=== PATIENT | male | born 1965 | race Asian ===

== ENCOUNTER 2024-11-18 18:33 | Inpatient (IN) | payer OTHER, SELFPAY ==
[2024-11-18] VITALS (10 sets, daily range): BP systolic 114–170; BP diastolic 62–99; BMI 36.8; BMI 36.7
--- NOTE | 2024-11-18 16:23 | ED.GENMED ---
History of Present Illness
General
Chief Complaint: Chest Pain
Source: patient
Exam Limitations: none
Time Seen by Provider: 11/18/24 16:09
History of Present Illness
History of Present Illness:
59-year-old male complaining of intermittent chest pain. Has been going on for a week. Started while [place] was in [place] country[place] Flu a few days prior to that. Some radiation at times to the left shoulder. No diaphoresis or nausea. Feels like his
previous cardiac issues per the patient. History of multiple stents. No leg pain or leg swelling. No fever.
Past History
Past History
ED Past Medical History: CAD, HTN, Hypercholesterolemia and IDDM
ED Past Surgical History: Cardiac
Social History
Tobacco: Former smoker (States he quit in 2015)
Alcohol: Occasional
Drug: None
Living: with family
Employment: Not employed
Family History
Family History: Early CAD
Review of Systems
Review of Systems
All Other Systems: Not applicable
Constitutional: Denies fever
Respiratory: Denies cough or trouble breathing
ABD/GI: Reports no symptoms
Phy Exam
Physical Exam
Physical Exam:
GENERAL: Alert and oriented in no apparent distress
EYE: Orbits normal.
NECK: Supple
CARDIAC: Regular rate and rhythm without any obvious murmurs.
LUNGS: Clear breath sounds,normal
ABDOMEN: Soft, without focal tenderness or distention. Elevated BMI
NEUROLOGICAL: Alert and oriented , grossly non-focal
SKIN: Warm and dry, no rash or lesion, no discoloration, skin intact.
MUSCULOSKELETAL: No edema,no deformity.Good color
PSYCH: Normal and appropriate interaction..
Scores
Heart Score for Chest Pain Patients
STEMI patient?: No
History: Moderately Suspicious
ECG: Nonspecific Repolarization
Age: >/= 65 years
Risk Factors: >/= 3 Risk Factors or History of CAD
Troponin: >1 - <3 x Normal Limit
Heart Score for Chest Pain Patients: 7
Heart Score Risk: 72.7 % MACE over next 6 weeks
Course
Orders/Labs/Results
Orders:
Orders
11/18/24 16:11
IV Insert/Care/Rem.- Treatment PRN
Pulse Ox/cont/shift [RESP] Stat
Quantity: 1
11/18/24 16:12
Electrocardiogram (*1) Stat
Reason for Study: Other
Other Reason for Exam: chest pain
CT Chest PE Study Urgent
Comment:
Reason For Exam: Chest pain/history of PE/recent flight
Cardiac Monitoring- Treatment ONCE
EKG- Treatment ONCE
11/18/24 16:14
Complete Blood Count/With Diff Urgent
Comprehensive Metabolic Panel Urgent
Lipase Urgent
Troponin I Urgent
11/18/24 16:29
Electrocardiogram (*1) Urgent
Reason for Study: Chest Pain
11/18/24 16:30
EKG- Treatment ONCE
11/18/24 16:36
Heparin 4,000 units IV NOW STA
11/18/24 16:[address] Non Medication Order As Directed
Physician Order: PTT 6 hours after initial start of Heparin infusion
Above order entered?: Yes
11/18/24 16:38
Nitroglycerin Sublingual [Nitrostat (Sublingual)] 0.4 mg .ROUTE .STK-MED ONE
11/18/24 16:45
Heparin 05840 Units/250 ml 25,000 units in 250 ml IV PER PROTOCOL
Weight to be used for heparin protocol in kilograms (kg):: 103.5
Protocol:: Cardiac Tx/Acute Coronary
PTT Goal Range to be used:: PTT 73 to 111 seconds
Order type:: Initial
INITIAL Infusion Dose (UNITS/KG/hr) & then follow protocol:: 12 units/kg/hr
Infusion Dose in UNITS/hr & then follow protocol (UNITS/hr):: 1,000
INFUSION RATE in mL/hr & then follow protocol (mL/hr):: 10
PTT less than or equal to 64 seconds:: Increase rate by 200 units/hr (+ 2 mL/hr)
PTT 64.1 to 72.9 seconds:: Increase rate by 100 units/hr (+ 1 mL/hr)
PTT 73 to 111 seconds:: Target Range. No change in rate.
PTT 111.1 to 130.9 seconds:: Decrease rate by 100 units/hr (- 1 mL/hr)
PTT 131 to 199.9 seconds:: HOLD for 1 hr. Then decrease rate by 200 units/hr (- 2 mL/hr)
PTT greater than or equal to 200 seconds:: HOLD for 2 hrs & Notify Provider. Then decrease by 200 units/hr (-
2 mL/hr)
Lab follow-up:: Each change, PTT q6h until 2 consecutive are therapeutic. Then PTT
daily.
11/18/24 17:13
PTT Urgent
Comment: Obtain baseline before beginning heparin infusion if not already collected
11/18/24 17:34
Heparin 5,000 units .ROUTE .STK-MED ONE
Nitroglycerin 100 mg/250 ml [Nitroglycerin Premix] 100 mg in 250 ml IV NOW
Initial dose in mcg/min, then titrate:: 5
Titrate to keep:: Chest Pain Free
Titrate by mcg/min:: 5 mcg/min, may increase by 10 mcg/min if dose > 20 mcg/min
Frequency of titrations (minutes):: every 3-5 minutes
Maximum dose in mcg/min:: 200
Begin to taper infusion when:: Remained at goal for 2hrs
Taper by mcg/min:: 5 mcg/min
Frequency of taper (minutes) if patient maintains goal:: 30
Taper to off?: Yes
If infusion off & no longer maintaining goal:: Contact Provider
11/18/24 18:00
Admit/Transfer Patient As Directed
Co-Sign Provider:
Level of Care: Inpatient admission
Assign to:: IVU
Physician / Group: trang
Diagnosis: NSTEMI
Reason for Hospitalization: NSTEMI
Expected length of stay greater than two midnights?: Yes
ELOS- Estimated Length of Stay in days: 3
I certify the patient meets the requirements for IP care: Yes
PRN Pain Medication Management As Directed
May give lesser potent ordered pain med per pt: Yes
preference::
Protocol:: Medication orders for pain may be administered in a
manner that supports deferring to patient preference
when the pt is:
- Requesting an ordered lesser potent pain medication.
Least to most potent pain medications are defined
as: acetaminophen < NSAID < tramadol < opioids
(morphine, oxycodone, hydromorphone).
- Requesting a lesser dose of the same medication IF
ORDERED.
- Requesting a less intrusive route of administration
if both routes are prescribed by the provider (PO <
IV).
11/18/24 18:04
Code Status As Directed
Resuscitation Status: Full Code
11/18/24 18:07
Aspirin 325 mg PO NOW STA
11/18/24 22:00
Troponin I Q6H
11/18/24 23:29
PTT Routine
11/19/24 04:00
Troponin I Q6H
11/19/24 06:00
Echo 2D MMode Color/Doppler IN AM
Reason for Study: chest discomfort
NPO
Allow oral meds: Yes
Allow clear liquids: No
Abnormal Lab Results
11/18/24
16:14
WBC 11.4 H 10^3/uL
(4.8-10.8)
Hgb 12.1 L g/dL
(13.0-18.0)
Hct 37.3 L %
(39.0-52.0)
MCV 78.5 L fL
(80.0-94.0)
MCH 25.5 L pg
(27.0-31.0)
MCHC 32.4 L g/dL
(33.0-37.0)
Absolute Lymphs (auto) 4.5 H 10^3/uL
(1.2-3.4)
BUN 26 H mg/dl
(9-20)
Glucose 179 H mg/dl
(70-99)
Troponin I 0.057 H* ng/ml
11/18/24 16:14
11/18/24 16:14
Vital Signs
Initial and Last Documented VS:
Initial Vital Signs
Temp Pulse Resp BP Pulse Ox
98.3 F 69 17 152/95 99
11/18/24 16:06 11/18/24 16:06 11/18/24 16:06 11/18/24 16:06 11/18/24 16:06
Last Documented Vital Signs
Temp Pulse Resp BP Pulse Ox
98.3 F 66 27 131/81 98
11/18/24 16:06 11/18/24 21:00 11/18/24 21:00 11/18/24 20:00 11/18/24 20:30
MDM/Problems Addressed
Differential Diagnosis Includes:
Somewhat difficult historian. Describing intermittent chest pain. At times points to a local area at other times describes it is towards the shoulder and arm. Significant cardiac history. Relatively low suspicion for PE but with a long flight
and history of PE feels this needs to be ruled out. Feel D-dimer is not sensitive enough. If this is negative patient warrants further inpatient evaluation
*Radiology
Radiology exam reviewed: radiology read reviewed (No open no pulmonary emboli. Coronary calcification and stents. Mild aneurysmal dilatation of the ascending aorta)
*Pulse Oximetry
Patient hypoxic: no
*EKG
Interpreted by ED Provider?: Yes
Interpretation: abnormal
Comparison EKG: no changes
Heart Rate: 69
Rate: normal
Rhythm: sinus
Al[place]: normal axis
Interval: normal interval
QRS Pattern: normal QRS
Ischemia: T-wave inversion
*Critical Care Note
Total Time (30-74mins, 75-104mins- exclusive of procedures): 45
Data Reviewed
Review of Other/Old Records Reveals: Labs, Records, Testing and Discharge Summary
Update Note
Update Note:
1635... Patient with some increasing symptoms although points to a fairly localized spot. Repeat EKG unchanged. I will heparinize the patient. Either way whether this is cardiac PE warrants heparinization.
ED Attending Note
-
Portions of this chart may have been created with voice recognition software.� Occasional wrong word or��sound alike� substitutions may have occurred due to the inherent limitations of voice recognition software.
Discharge Plan
Departure
Patient Disposition: Admit
Date of Disposition: 11/18/24
Time of Disposition: 17:35
Presentation/result/management discussed w/ accepting MD/DO: Hospitalist
Discharge Problem:
Recurring chest pain, Possible unstable angina, Mild aneurysmal dilatation ascending aor
Interventions
Interventions:
*Risk Screen - Suicide Last Done: 11/18/24 16:21
*General Assessment Last Done: 11/18/24 16:21
*Neglect/Abuse Screening Last Done: 11/18/24 16:21
*ED- Fall Risk Assessment Last Done: 11/18/24 16:21
*ED COVID-19 Vaccine History Last Done: 11/18/24 16:21
*Nursing Disposition Last Done: 11/18/24 21:00
ED- Cardiac Assessment Last Done: 11/18/24 16:21
Discharge Date and Time
Discharge Date/Time: 11/18/24 21:00
[2024-11-18 16:26] LABS: % Basophils 0.4 % (0-2); % Eosinophils 2.5 % (0-6); % Immature Granulocytes 0.2 % (0-0.5); % Lymphocytes 39.9 % (20.5-51.1); % Monocytes 5.3 % (1.7-9.3); % Neutrophils 51.7 % (42.2-75.2); Absolute Eosinophils 0.3 10^3/uL (0-0.7); Absolute Lymphocytes 4.5 10^3/uL (1.2-3.4); Absolute Monocytes 0.6 10^3/uL (0.1-0.6); Absolute Neutrophils 5.9 10^3/uL (1.4-6.5); Hematocrit 37.3 % (39.0-52.0); Hemoglobin 12.1 g/dL (13.0-18.0); Mean Corp Hgb Conc. 32.4 g/dL (33.0-37.0); Mean Corpuscular Hgb 25.5 pg (27.0-31.0); Mean Corpuscular Volume 78.5 fL (80.0-94.0); Mean Platelet Volume 10.1 fL (7.4-10.4); Nucleated Red Blood Cells % 0 % (-); Platelet Count 283 10^3/uL (130-400); Red Blood Cell Count 4.75 10^6/uL (4.70-6.10); Red Cell Dist. Width 14.1 % (11.5-14.5); White Blood Cell Count 11.4 10^3/uL (4.8-10.8)
[2024-11-18 16:41] LABS: ALT (SGPT) 18 U/L (0-50); AST (SGOT) 27 U/L (17-59); Albumin 4.2 g/dl (3.5-5.0); Alkaline Phosphatase 99 U/L (38-126); Blood Urea Nitrogen 26 mg/dl (9-20); Calcium 9.5 mg/dl (8.4-10.2); Carbon Dioxide 24 mmol/L (22-30); Chloride 106 mmol/L (98-107); Estimated Creatinine Clearance 84 ml/min; Glucose 179 mg/dl (70-99); Lipase 104 U/L (23-300); Potassium 3.6 mmol/L (3.5-5.1); Sodium 138 mmol/L (135-145); Total Bilirubin 0.2 mg/dl (0.2-1.3); Total Protein 7.2 g/dl (6.3-8.2); eGFR > 60.00
[2024-11-18 16:54] LABS: Troponin I 0.057 ng/ml
--- NOTE | 2024-11-18 17:28 | CON.CAR ---
Addendum entered and electronically signed by Raya Reno MD 11/18/24 18:57:
I saw and examined the patient.
The EQUIPMENT OPERATION INSTRUCTOR's note was reviewed and I agree with the note.
Comment: 59 y/o male with hx PE's (previously on Eliquis), CAD with multiple stents (cath 2019 as below), DM on insulin, HTN, HLD, asthma on inhaler therapy is here for evaluation intermittent episodes of chest discomfort reminiscent of prior
angina. Interestingly he does not get relief with what appears to be a spray nitroglycerin drip. At times it can be positional. Trope is already 0.057. He is now comfortable. On exam he has a regular rate and rhythm normal S1-S2 no murmur exams
were appreciated lungs were clear to auscultation bilaterally abdomen soft nontender nondistended without pedal splenomegaly extremities are warm and well-perfused. EKG is normal sinus rhythm nonspecific ST abnormality no change from prior. CT PE
scan reviewed by myself images do not show consistent mincing evidence of large volume of PE, await full report. Overall, chest pain is present that seems to be progressive in the setting of prior extensive vasculopathy with PCI. In the absence of
a PE, would recommend cardiac catheterization and further evaluation of symptoms. Will trend troponin. Continue nitroglycerin drip. N.p.o. after midnight. He was added to the cath schedule. Further OMT post procedure.
Original Note:
Medical History
-
Chief Complaint: chest discomfort
History of Present Illness:
59 y/o male with hx PE's (previously on Eliquis), CAD with multiple stents (cath 2019 as below), DM on insulin, HTN, HLD, asthma on inhaler therapy is here for evaluation of chest discomfort. It is left-sided and goes down arm. Interestingly, it is
a bit positional, though he reports it feels like previous angina. Not noted with exertion. Can last up to 1/2 hour. EKG is stable troponin is 0.057. He has no CP at the time of exertion. He just flew back after 18 months in [place] yesterday. CT
PE pending. 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 Denies fever or chills.
Past Medical History
Past Medical History: Asthma, CAD, HTN, Hypercholesterolemia, NIDDM and Other (as above)
Social History
Tobacco: Former Smoker
Family History
Family History: Early CAD
Allergies / Home Medications
Allergy/AdvReac Type Severity Reaction Status Date / Time
egg Allergy Anaphylaxis Verified 11/18/24 16:21
beef Allergy Anaphylaxis Uncoded 11/18/24 16:21
shrimp Allergy Anaphylaxis Uncoded 11/18/24 16:21
�Medication �Instructions �Recorded �Confirmed �Type
acetaminophen-caffeine 500 mg-65 1 tab PO [id number] PRN mild pain 11/18/24 11/18/24 History
mg tablet
albuterol sulfate 90 mcg/actuation 2 puff inhalation R Q6HPRN PRN sob 11/18/24 11/18/24 History
aerosol inhaler
amlodipine 10 mg tablet (Norvasc) 10 mg PO DAILY 11/18/24 11/18/24 History
aspirin 81 mg tablet,delayed 75 mg PO QPM 11/18/24 11/18/24 History
release
cetirizine 10 mg tablet (Zyrtec) 10 mg PO HS 11/18/24 11/18/24 History
clopidogrel 75 mg tablet (Plavix) 75 mg PO DAILY 11/18/24 11/18/24 History
esomeprazole magnesium 20 mg 20 mg PO BID 11/18/24 11/18/24 History
capsule,delayed release (Nexium)
glimepiride 1 mg tablet 1 mg PO QPM 11/18/24 11/18/24 History
metformin 1,000 mg tablet,extended 1,000 mg PO BID 11/18/24 11/18/24 History
release 24hr (osmotic)
metoprolol tartrate 25 mg tablet 25 mg PO BID 11/18/24 11/18/24 History
montelukast 10 mg tablet 10 mg PO DAILYPRN PRN allergies 11/18/24 11/18/24 History
(Singulair)
paroxetine HCl 20 mg tablet (Paxil) 20 mg PO HS 11/18/24 11/18/24 History
rosuvastatin 10 mg tablet (Crestor) 10 mg PO DAILY 11/18/24 11/18/24 History
Review of Systems
-
History Source: Patient
All other systems: Negative unless noted
Cardiac: Chest Pain
Physical Exam
Vital Signs
Temp Pulse Resp BP Pulse Ox
98.3 F 66 15 143/78 98
11/18/24 16:06 11/18/24 17:15 11/18/24 17:15 11/18/24 17:00 11/18/24 17:15
Lab Results
11/18/24 16:14
11/18/24 16:14
Troponin I 0.057 ng/ml H* 11/18/24 16:14
Physical Exam
General: Well Developed, Well Nourished and No Apparent Distress
HEENT: Normocephalic
Respiratory: Clear and Non Labored Respirations
Cardiac: Regular Rhythm
Musculoskeletal: No Edema
Skin: Warm and Dry
Neuro: AO x 3
Psych: Calm
Impression / Plan
-
Chest discomfort:
-none presently, EKG looks stable from previous
-he reports it feels similar to his previous angina. However, he is also describing it as positional, which is atypical. Troponin is abnormal, etiology not yet clear. Trend trops. Obtain echo. PE study pending.
-echo in AM, would keep NPO for AM while we sort this out to see if he needs ischemic eval
-he is on heparin drip and nitro drip, both of which require intensive monitoring
CAD:
-continue plavix, statin, BB
-Cath 2019: LAD: Widely patent ostial/proximal LAD stents with focal 30% mid LAD stenosis. There is 50% apical LAD stenosis similar appearance to the prior study from September 2018. Circumflex: Widely patent ostial circumflex stent with trivial
in-stent stenosis. There is 20-30% circumflex stenosis proximal to the takeoff of the large OM 1. OM1 bifurcates distally and there is 40% stenosis proximal to the bifurcation site and 60% ostial stenosis in the much smaller daughter branch. The
circumflex continues on and terminates with a moderate-sized OM 3 and a large OM 4. The mid circumflex stent is widely patent. RCA: Large dominant vessel with widely patent proximal RCA stent. There is focal 30-40% mid RCA stenosis. The large PDA is
disease free. The AV groove has a widely patent stent with no restenosis (HIWOT 09/2018). The large posterolateral system has trivial luminal disease
DM, on insulin:
-management per primary
-check A1C
Dyslipidemia:
-continue statin, check lipids
Data Reviewed
-
EKG: Tracing Personally Visualized and interpreted (SR with 1st degree AVB, ST/T abnormality lateral- similar to 2020 EKG)
CT Scan: Other (CT pending)
Medical Tests (Nuc Med, Echo etc): Report Reviewed by me (Echo 05/29/21: Normal biventricular size and systolic function without regional wall motion abnormality. Moderate concentric left ventricular hypertrophy. Dilated ascending aorta. ) and
Other (cath as noted)
Labs: Labs Reviewed by me
[2024-11-18] MEDS: HEPARIN 4000 UNITS IV (17:29)
[2024-11-18 17:31] LABS: APTT 27.5 Sec (23.4-35.0)
[2024-11-18] MEDS: HEPARIN 25000 UNITS/250 ML IV ×2 (17:33→17:37)
--- NOTE | 2024-11-18 17:36 | HPS.HSE ---
Family Physician
-
Family Physician: Hossein Wallace
Chief Complaint
-
left sided chest pain radiating to left shoulder and neck
History of Present Illness
59-year-old male with past medical history for CAD s/p cardiac stents, asthma, hypertension, type 2 diabetes, hyperlipidemia presented to us with 2 weeks of of intermittent chest pain radiating to his left arm, shoulder and left neck. Patient was
at [facility] at that time. He was evaluated by physician, who prescribed him some pill and spray with no relief in his symptoms. Patient came to [facility] last night. He was having excruciating pain during the flight. Today he felt the pain
again. Patient stated some short of breath. He denied any headache, dizzy or syncope. Patient denied any fever, chills, cough. Patient denied abdominal pain, nausea, vomiting or diarrhea. Patient denied dysuria hematuria.
Upon arrival noted to have elevated Trop. EKG with impression of sinus rhythm with first-degree AV block. ST and T wave abnormality. Patient was initiated on nitro drip and heparin drip. He was evaluated by cardiology. Admitting for further
management
Medical History
Past Medical History
Past Medical History: Reports Other
Additional Past Medical History:
CAD
HTN
HLD
IDDM
PE
Past Surgical History: Reports Other
Additional Past Surgical History:
cardiac stents
Social History
Tobacco: Former Smoker
Alcohol: Former
Drug: None
Personal:
Living: Alone
Employment: Not Employed
Family History
Family History: Not pertinent
Allergies / Home Medications
Allergies reflects when Allergies were last updated in [employer]
Home Medications with original date entered in [employer]
Allergy/Medication List:
Allergies
Allergy/AdvReac Type Severity Reaction Status Date / Time
egg Allergy Anaphylaxis Verified 11/18/24 16:21
beef Allergy Anaphylaxis Uncoded 05/21/25 16:21
shrimp Allergy Anaphylaxis Uncoded 11/18/24 16:21
Home Medications
acetaminophen-caffeine 500 mg-65 mg tablet 1 tab PO [id number] PRN mild pain 11/18/24
albuterol sulfate 90 mcg/actuation aerosol inhaler 2 puff inhalation R Q6HPRN PRN sob 11/18/24
amlodipine 10 mg tablet (Norvasc) 10 mg PO DAILY 11/18/24
aspirin 81 mg tablet,delayed release 75 mg PO QPM 11/18/24
cetirizine 10 mg tablet (Zyrtec) 10 mg PO HS 11/18/24
clopidogrel 75 mg tablet (Plavix) 75 mg PO DAILY 11/18/24
esomeprazole magnesium 20 mg capsule,delayed release (Nexium) 20 mg PO BID 11/18/24
glimepiride 1 mg tablet 1 mg PO QPM 11/18/24
metformin 1,000 mg tablet,extended release 24hr (osmotic) 1,000 mg PO BID 11/18/24
metoprolol tartrate 25 mg tablet 25 mg PO BID 11/18/24
montelukast 10 mg tablet (Singulair) 10 mg PO DAILYPRN PRN allergies 11/18/24
paroxetine HCl 20 mg tablet (Paxil) 20 mg PO HS 11/18/24
rosuvastatin 10 mg tablet (Crestor) 10 mg PO DAILY 11/18/24
Review of Systems
-
Constitutional: Reports No Symptoms
EENT: Reports No Symptoms
Respiratory: Reports Trouble Breathing
Cardiac: Reports Chest Pain
Abdomen/GI: Reports No Symptoms
: Reports No Symptoms
Musculoskeletal: Reports No Symptoms
Skin: Reports No Symptoms
Neurological: Reports No Symptoms
Endocrine: Reports No Symptoms
Hematologic/Lymphatic: Reports No Symptoms
Psych: Reports No Symptoms
Physical Exam
Vital Signs
Vital Signs
Temp Pulse Resp BP Pulse Ox
98.3 F 66 15 143/78 98
11/18/24 16:06 11/18/24 17:15 11/18/24 17:15 11/18/24 17:00 11/18/24 17:15
Physical Exam
General: Well Developed, Well Nourished and No Apparent Distress
HEENT: NormoCephalic, Moist mucous membranes and Atraumatic
Respiratory: Clear
Cardiac: S1/S2 and Regular Rhythm; No Murmur or Rub
GI: Soft, Non Tender, Non Distended and Normal Bowel Sounds; No Organomegaly
Rectal: Deferred by Provider
Musculoskeletal: No Clubbing, No Cyanosis and No Edema
Skin: No Rash
Neuro: AO x 3 and Nonfocal/grossly intact
Psych: Calm
Laboratory Results
-
11/18/24 16:14
11/18/24 16:14
Laboratory Results
Total Bilirubin 0.2 mg/dl (0.2-1.3) 11/18/24 16:14
AST 27 U/L (17-59) 11/18/24 16:14
ALT 18 U/L (0-50) 11/18/24 16:14
Alkaline Phosphatase 99 U/L (38-126) 11/18/24 16:14
Troponin I 0.057 ng/ml H* 11/18/24 16:14
Lipase 104 U/L (23-300) 11/18/24 16:14
Data Reviewed
-
Lab Data: Labs Reviewed by me
Impression/Plan
-
#unstable angina/NSTEMI
# History of CAD with 6 cardiac stent
-trop 0.057
-trend trop
-chest CT pending
-EKG with sinus rhythm with 1st degree A V block, ST and T wave abnormality, consider lateral ischemia
-N.p.o. after midnight for potential cardiac cath in the morning
-Heparin drip
-obtain ECHO
-cardiology consulted
-nitro drip continued
#leukocytosis likely stress reaction
-wbc 11.4, patient is afebrile
-ctm
#anemia of chornic disease
-hgb stable at 12.1
-not active bleeding
-ctm
#primary Hypertension
- Stable.
- Norvasc continue with hold parameters
#Diabetes Mellitus Type II
- Continue sliding scale
- Hold oral agents for now.
- Update A1C.
#History of asthma
-Not in acute exacerbation
-Singular and albuterol continued
#hxt of PE in 2020
#Obesity
- Affects all aspects of care and specifically increases risk of sleep disordered breathing as noted above.
- Encourage healthy diet and active lifestyle with goal of weight loss.
#DVT Prophylaxis: heparin drip
Code Status: Full
[2024-11-18] MEDS: NITROGLYCERIN PREMIX 250 IV (17:41)
[2024-11-18] MEDS: ASPIRIN 325 MG PO (18:20)
--- NOTE | 2024-11-18 19:02 | W.PN.UPDATE ---
Addendum entered and electronically signed by Lazaro Marquez MD 11/18/24 19:42:
Correction- PE was in 2020.
Original Note:
Update Note
Progress Note Update
This is an addendum to H&P written by Monica Hernandez on 11/18/2024.� Patient seen examined independently with PRACTICING UROLOGIST.
59-year-old male past medical history of bilateral pulmonary embolism after flight in 2016, anemia, iron deficiency, CAD status post multiple stents 2002, 2006, hypertension, type 2 diabetes, obesity, presenting with chest pain for 2 weeks sometimes
with rest and worse with exertion.� Returned from [facility] yesterday.
EKG shows sinus rhythm first-degree AV block.� T wave inversions in aVL and lead I, V5, V6.
Labs show leukocytosis.� Troponin of 0.057.
Patient with likely NSTEMI. Trend troponins.� Continue aspirin and Plavix.� Heparin drip started.� Nitroglycerin drip started.� Cardiology consulted.� N.p.o. postmidnight for potential catheterization tomorrow.
--- NOTE | 2024-11-18 20:50 | PTCARENOTE ---
Received pt from ED @ 2039. AAOx3, very drowsy. VSS-- SR with AV Block on monitor. Heparin gtt running through right hand @ 1000. Nitro running through left AC @ 5 mcg/kg/hr. Denies CP @ this time. Discussed plan of care for evening, including EKGs,
blood draws, and being NPO @ midnight. Pt verbalizes understanding. Call jeffery within reach.
[2024-11-18] MEDS: LOPRESSOR 25 MG PO (22:17)
[2024-11-18] MEDS: PROTONIX 40 MG PO (22:17)
[2024-11-18] MEDS: ZYRTEC 10 MG PO (22:18)
[2024-11-18] MEDS: PAXIL 20 MG PO (22:18)
[2024-11-18 22:31] LABS: Troponin I 0.054 ng/ml
[2024-11-18 22:35] LABS: Glucose - Point of Care 231 mg/dl (70-99)
[2024-11-19] VITALS (21 sets, daily range): BP systolic 101–159; BP diastolic 52–98; BMI 36.4
[2024-11-19 01:44] LABS: Troponin I 0.051 ng/ml
--- NOTE | 2024-11-19 06:16 | PTCARENOTE ---
Pt c/o chest pain throughout the night. EKG performed and nitro increased-- see worklist. Pt denies CP @ this time.
--- NOTE | 2024-11-19 08:00 | PTCARENOTE ---
report received from previous RN at change of shift. Pt sleeping, arouses easily to voice. AAOx3. standby assist OOB. SR on telemetry heart rate in 60s. pulses palpable. no edema. pt on room air, sat 94%. lung sounds clear. active bowel sounds.
voiding in urinal. Nitro and heparin infusing per orders. see worklist for full nursing assessment and interventions.
[2024-11-19 08:25] LABS: Hematocrit 38.5 % (39.0-52.0); Hemoglobin 12.2 g/dL (13.0-18.0); Mean Corp Hgb Conc. 31.7 g/dL (33.0-37.0); Mean Corpuscular Hgb 25.2 pg (27.0-31.0); Mean Corpuscular Volume 79.5 fL (80.0-94.0); Platelet Count 273 10^3/uL (130-400); Red Blood Cell Count 4.84 10^6/uL (4.70-6.10); Red Cell Dist. Width 14.1 % (11.5-14.5); White Blood Cell Count 11.4 10^3/uL (4.8-10.8)
[2024-11-19 08:34] LABS: APTT 38.9 Sec (23.4-35.0)
[2024-11-19 08:43] LABS: Glucose - Point of Care 161 mg/dl (70-99)
[2024-11-19] MEDS: NOVOLOG FLEXPEN-LOW RESISTANCE SC (08:43)
[2024-11-19] MEDS: PROTONIX 40 MG PO ×2 (08:44→19:44)
[2024-11-19] MEDS: LOPRESSOR 25 MG PO (08:44)
[2024-11-19] MEDS: LOW STRENGTH ASPIRIN 81 MG PO (08:44)
[2024-11-19] MEDS: CRESTOR 10 MG PO (08:44)
[2024-11-19] MEDS: PLAVIX 75 MG PO (08:45)
[2024-11-19] MEDS: NORVASC 10 MG PO (08:45)
[2024-11-19 09:17] LABS: Glycohemoglobin (HgbA1c) 9.1 % (4.0-5.6)
[2024-11-19] MEDS: TYLENOL 650 MG PO ×2 (09:26→15:46)
[2024-11-19 10:06] LABS: Troponin I 0.043 ng/ml
--- NOTE | 2024-11-19 10:30 | CARDSERVLU ---
Echocardiogram with Lumason completed after protocol screening completed. Allergies verified.
Patent IV site: __R hand___
IV site flushed with 0.9% NaCl pre and post administration.
Diluted bolus method utilized to enhance visualization of ventricular hernandez.
Total volume given: __2.5__ mL
Patient tolerated all procedures well without complications.
[2024-11-19 10:44] LABS: HDL Cholesterol 43 mg/dl
--- NOTE | 2024-11-19 10:48 | W.PN.UPDATE ---
Update Note
Progress Note Update
Called to bedside by nurse he had complained of headache and 5/10 cp. Upon my arrival cp is resolved.
RRR no m/r/g, lungs CTA, A&Ox3
ecg without ischemic change
trop ordered
alerted cath team of recurrent pain
continue heparin and nitro gtt
tylenol ordered
[2024-11-19 10:57] LABS: Total Cholesterol 131 mg/dl (50-199)
[2024-11-19 11:24] LABS: LDL Cholesterol, Direct 44 mg/dl
--- NOTE | 2024-11-19 12:34 | CM ---
Chart reviewed. Patient is independent of ADLS, lives with his sister in a [address], [address], [address]. Patient confirmed he does not have insurance. Referral sent in to [facility]. I spoke to Adali and she is aware of the patient. Plan is for the
patient to return home. CM to follow
[2024-11-19 12:38] LABS: Glucose - Point of Care 161 mg/dl (70-99)
[2024-11-19] MEDS: NOVOLOG FLEXPEN-LOW RESISTANCE 1 UNITS SC (12:39)
--- NOTE | 2024-11-19 14:26 | W.PN.HOSP.TC ---
Today's Communication/Plan
-
Evaluation for acute coronary syndrome
Assessment / Plan
Assessment / Plan
Impression:
Chest pain with concern for acute coronary syndrome.
CAD
Type 2 diabetes.
Dyslipidemia.
Obesity with BMI of 30
Plan:
Presentation with chest pain with concern for acute coronary syndrome and patient with known CAD with prior cath and LAD stents.
Troponin flat.
ECG with T wave inversions in lateral leads.
Initiated on IV heparin and nitroglycerin
Continue beta-blockade
On DAPT prior to presentation
Plan for ischemic evaluation including echocardiogram and cath
Type 2 diabetes.
Preadmission regimen metformin and glimepiride
Hold oral hypoglycemics acutely pending above evaluation.
Update hemoglobin A1c.
Continue basal bolus protocol
Dyslipidemia
On statin [facility] [employer]
Anticipated Discharge: 24 - 48 hours
Subjective/Interval History
-
Date of Service: November 19, 2024
Objective Data
-
Labs:
Laboratory Results
11/19/24 11/19/24
08:15 15:00
WBC 11.4 H
Hgb 12.2 L
Hct 38.5 L
Plt Count 273
APTT 38.9 H Pending
Vital Signs:
Vital Signs
Temp Pulse Resp BP Pulse Ox
98.5 F 61 20 132/76 94
11/19/24 11:15 11/19/24 12:00 11/19/24 11:15 11/19/24 12:00 11/19/24 11:15
I&O
11/18/24 11/19/24 11/20/24
06:59 06:59 06:59
Output Total 950 / 950
Balance -950 / -950
Physical Exam
-
General: Well Developed and No Apparent Distress
HEENT: Normocephalic, Atraumatic and Moist Mucous Membranes
Respiratory: Clear to Auscultation
Cardiac: Regular Rhythm and S1/S2; Negative Murmur, Rub or Gallop
GI: Soft, Nontender, Nondistended and Normal Bowel Sounds; Negative Organomegaly
Rectal: Deferred by Provider
Musculoskeletal: No Clubbing, No Cyanosis and No Edema
Skin: Negative Rash
Neuro: Nonfocal/Grossly Intact
[2024-11-19] MEDS: HEPARIN 25000 UNITS/250 ML IV (14:41)
[2024-11-19 15:03] LABS: APTT 45.4 Sec (23.4-35.0)
[2024-11-19 15:29] LABS: Triglyceride 463 mg/dl (10-149)
--- NOTE | 2024-11-19 17:51 | PTCARENOTE ---
received patient from cardiac cath lab technologist post catheterization, right radial TR band in place, site CDI. 96% on room air. pt drowsy, arouses to voice. pt denies chest pain at this time. nitro infusing. pt updated on plan of care.
[2024-11-19] MEDS: IMDUR (EXTENDED RELEASE) 30 MG PO (18:11)
[2024-11-19] MEDS: NOVOLOG FLEXPEN-LOW RESISTANCE 2 UNITS SC (18:13)
[2024-11-19 18:14] LABS: Glucose - Point of Care 228 mg/dl (70-99)
--- NOTE | 2024-11-19 18:46 | W.PN.CD ---
Today's Communication / Plan
-
cath without clear culprit
cont. to titrate anti-anginals, stop heparin, wean nitro
Impression / Plan
-
# Chest pain
-he reports pain that feels similar to his previous angina. However, he is also describing it as positional, which is atypical. Troponin is abnormal, but flat. Cath with progression of diffuse disease but no obvious culprit lesion to explain rest
pain
-will treat for microvascular angina / [place] with titration of anti-anginal medications - increase metoprolol, start long acting nitrate
-can stop heparin and nitro drips
CAD
HLD
-cath today with progression of branch vessel disease and worsening of ostial LCx disease, found to be iFR positive but not severe enough to explain rest angina which as above has atypical features and overall picture not consistent with Type I
NSTEMI so revascularization deferred
-if continued chest pain despite optimal medical therapy could consider outpatient ostial LCx PCI
-continue plavix, statin, goal LDL<55
-triglycerides elevated, consider Vascepa initiation as outpatient
-check Lp(a) and consider PCSK9i as outpatient if elevated or LDL>55
DM, on insulin:
-management per primary
TTE 11/19/2024
Normal left ventricular systolic function.
Estimated left ventricular ejection fraction of 65 to 70% .
LVH
No significant valvular disease.
Mildly dilated aortic root 4.1 cm as measured at the sinus of Valsalva
Compared to the previous report 05/29/2021 there is no significant change
CTA 11/18/2024
IMPRESSION: Examination is negative for pulmonary embolism.
There is mild aneurysmal dilation of the ascending aorta, with short axis diameter 4.2 cm at the level of the right main pulmonary artery, stable compared to examination of May 28, 2021. Consider follow-up CT angiography with attention to the
ascending aorta, suggested timeframe of 2 years.
Coronary artery calcifications and/or stents are present. Please correlate with symptoms of and risk factors for coronary artery disease, with further workup as clinically appropriate.
Bronchial wall thickening, which appears greatest in both lower lobes, suggestive of bronchitis.
Physical Exam
Vital Signs/Labs
Vital Signs
Temp Pulse Resp BP Pulse Ox
36.9 C 70 20 131/71 94
11/19/24 11:15 11/19/24 18:00 11/19/24 11:15 11/19/24 18:00 11/19/24 11:15
11/18/24 11/19/24 11/20/24
06:59 06:59 06:59
Actual Weight 102.3 kg
11/19/24 08:15
11/18/24 16:14
APTT 45.4 Sec (23.4-35.0) H 11/19/24 14:40
Triglycerides 463 mg/dl (10-149) H 11/19/24 08:15
LDL Cholesterol, Calc mg/dl 11/19/24 08:15
VLDL Cholesterol, Calc mg/dl (0-30) 11/19/24 08:15
HDL Cholesterol 43 mg/dl 11/19/24 08:15
LAB Results
11/18/24 11/18/24 11/18/24
16:14 21:59 22:00
Troponin I 0.057 H* 0.054 H* Cancelled
11/19/24 11/19/24 11/19/24
01:10 04:00 09:32
Troponin I 0.051 H* Cancelled 0.043 H*
Physical Exam
Constitutional: No acute distress
Cardiovascular: Rhythm & rate is regular
Respiratory: Respiratory effort normal
Neuro/Psych: AO x 3
Data Reviewed
-
Date of Service: November 19, 2024
Medical Decision Making: External Notes
EKG: Tracing Personally Visualized and interpreted
Echo: Tracing Personally Visualized and interpreted
X-Ray/CT/US/MRI/NUC/PET: Image Personally Visualized and interpreted
Medical Tests (PFT, Pathology etc): Image Personally Visualized and interpreted
Labs: Labs Reviewed by me and Labs Ordered by me
--- NOTE | 2024-11-19 19:13 | ITS.CL.PN ---
Supervisor [facility] Department - Procedure Note
Procedure
Procedure Note:
CARDIAC CATHETERIZATION REPORT
Date of Procedure: 11/19/2024
Referring: Dr. Raya Reno MD
Indication: Chest pain, NSTEMI
PROCEDURE(S)
1. left heart catheterization
2. coronary angiography
3. iFR ostial LCx
ACCESS: 6F right radial artery (closure: radial band)
CATHETERS
1. 6F JR4
2. 6F JL4
3. 6F XB4
MODERATE SEDATION: 45 minutes of moderate sedation was utilized. An independent certified court/medical interpreter was present to assist with and help manage the patient's level of consciousness and physiologic status.
HEMODYNAMIC DATA
LV 149/13 (EDP 19) mmHg
AO 154/89 (mean 115) mmHg
CORONARY ANGIOGRAPHY
Dominance: Right
LM: Large short vessel with minimal disease
LAD: Large vessel giving rise to moderate caliber D1 and small D2. There are widely patent stents in the proximal to mid vessel with mild ISR. There is a focally severe stenosis in the very distal LAD that is unchanged from prior angiography. There
is diffuse moderate disease in the D1 that is unchanged from prior angiography.
Ramus: small branch with minimal disease
LCx: Large vessel giving rise to a large OM1, moderate caliber OM2, and moderate caliber OM3. There are patent stents in the proximal and mid circumflex with mild disease. There is angiographically difficult to define ostial stenosis that appears
suspiciously severe in the AP cranial projection and appears to be mildly progressed from prior angiography in the caudal projections. This was further interrogated by iFR. There is otherwise moderate branch vessel disease that is mildly progressed
from prior angiography but no definitive culprit lesion.
RCA: Large vessel giving rise to a large marginal branch that goes on to become the PDA as well as a large posterolateral system with several small to medium sized branches. There is diffuse mild disease and a widely patent stent in the distal RCA
prior to the PL branches.
iFR of ostial circumflex
An Omni wire was flushed and zeroed outside the body and then advanced to the left main. The wire introducer was removed and the catheter flushed with saline, after which pressure of the wire and guide were normalized. The wire was advanced to the
proximal circumflex and iFR recorded at 0.80. iFR pullback was performed noting a very focal pattern at the circumflex ostium. On return to the left main, iFR appropriately normalized to ~1.0, confirming lack of wire drift.
RADIATION: dose 860 mGy; DAP 54 Gy*cm2; fluoroscopy time 10.4 min
CONCLUSIONS
1. Diffuse noncritical coronary artery disease in a right dominant system with progression relative to prior angiography but no definitive culprit lesion.
2. iFR positive ostial circumflex stenosis that is angiographically moderate in severity though progressed from prior angiography
3. Mildly elevated LV filling pressure and no aortic stenosis on hemodynamic pullback
RECOMMENDATIONS
1. Given atypical symptoms, troponin pattern not suggestive of a type I event, and lack of coronary lesion that would explain rest symptoms, and moderate complexity of ostial circumflex PCI, favor medical management of his chest pain. Will start
long-acting nitrate and increase beta-samreen dose and monitor symptoms. If patient is unable to control his symptoms with medical optimization, would be reasonable to consider PCI of the ostial circumflex.
2. Will increase statin to high intensity and check lipoprotein(a) with plan to consider initiation of PCSK9i inhibitor if Lp(a) is elevated.
3. Given elevated triglycerides may benefit from Vascepa as an outpatient.
Copy to: Dr. Hossein Wallace MD (comparative sociology professor)
Signed: Rolf Francisco MD, PhD
[2024-11-19] MEDS: TOPROL XL 50 MG PO (19:44)
[2024-11-19] MEDS: ZETIA 10 MG PO (21:32)
[2024-11-19] MEDS: PAXIL 20 MG PO (21:33)
[2024-11-19] MEDS: ZYRTEC 10 MG PO (21:33)
[2024-11-19 22:13] LABS: Glucose - Point of Care 360 mg/dl (70-99)
[2024-11-19] MEDS: NOVOLOG FLEXPEN 5 UNITS SC (23:01)
[2024-11-20] VITALS (7 sets, daily range): BP systolic 120–161; BP diastolic 72–91; BMI 35.7
--- NOTE | 2024-11-20 01:52 | PTCARENOTE ---
Addendum entered by Shital Salguero RN 11/20/24 05:45:
pt stated that around 2 am he had chest pain that last for a second 'it comes and goes' per pt.
Original Note:
pt NSR on monitor. Denies chest pain. Nitro gtt titrating down per protocol. Rt wrist post cath intact, with positive pulse. BS 360 covered with 5 units per FISH PITCHER order. Pt independent in the room. call jeffery in reach
[2024-11-20] MEDS: TYLENOL 650 MG PO (04:00)
[2024-11-20 04:40] LABS: Hematocrit 37.3 % (39.0-52.0); Hemoglobin 11.8 g/dL (13.0-18.0); Mean Corp Hgb Conc. 31.6 g/dL (33.0-37.0); Mean Corpuscular Hgb 24.9 pg (27.0-31.0); Mean Corpuscular Volume 78.7 fL (80.0-94.0); Mean Platelet Volume 10.5 fL (7.4-10.4); Platelet Count 293 10^3/uL (130-400); Red Blood Cell Count 4.74 10^6/uL (4.70-6.10); Red Cell Dist. Width 13.9 % (11.5-14.5); White Blood Cell Count 10.1 10^3/uL (4.8-10.8)
[2024-11-20 05:02] LABS: Blood Urea Nitrogen 19 mg/dl (9-20); Calcium 9.5 mg/dl (8.4-10.2); Carbon Dioxide 24 mmol/L (22-30); Chloride 105 mmol/L (98-107); Estimated Creatinine Clearance 113 ml/min; Glucose 224 mg/dl (70-99); Potassium 4.1 mmol/L (3.5-5.1); Sodium 137 mmol/L (135-145); eGFR > 60.00
[2024-11-20 07:41] LABS: ACT-LR - POC > 397 Seconds (116-155)
[2024-11-20 07:57] LABS: Glucose - Point of Care 211 mg/dl (70-99)
--- NOTE | 2024-11-20 08:16 | W.PN.CD ---
Today's Communication / Plan
-
OK for home
F/u with Dr. Hossein Wallace MD (pin pusher) in 2-3 weeks
Impression / Plan
-
CAD
- See cath report. ostial LCx will be treated medially
- Seconds of atypical CP not really consistent with angina noted
-if continued chest pain despite optimal medical therapy could consider outpatient ostial LCx PCI
-continue plavix, statin, goal LDL<55
-triglycerides elevated, consider Vascepa initiation as outpatient
-check Lp(a) and consider PCSK9i as outpatient if elevated or LDL>55
DM, on insulin:
-management per primary
Subjective:
No problems at cath site.
Cath 11/19/2024:
CONCLUSIONS
1. Diffuse noncritical coronary artery disease in a right dominant system with progression relative to prior angiography but no definitive culprit lesion.
2. iFR positive ostial circumflex stenosis that is angiographically moderate in severity though progressed from prior angiography
3. Mildly elevated LV filling pressure and no aortic stenosis on hemodynamic pullback
RECOMMENDATIONS
1. Given atypical symptoms, troponin pattern not suggestive of a type I event, and lack of coronary lesion that would explain rest symptoms, and moderate complexity of ostial circumflex PCI, favor medical management of his chest pain. Will start
long-acting nitrate and increase beta-samreen dose and monitor symptoms. If patient is unable to control his symptoms with medical optimization, would be reasonable to consider PCI of the ostial circumflex.
2. Will increase statin to high intensity and check lipoprotein(a) with plan to consider initiation of PCSK9i inhibitor if Lp(a) is elevated.
3. Given elevated triglycerides may benefit from Vascepa as an outpatient.
TTE 11/19/2024
Normal left ventricular systolic function.
Estimated left ventricular ejection fraction of 65 to 70% .
LVH
No significant valvular disease.
Mildly dilated aortic root 4.1 cm as measured at the sinus of Valsalva
Compared to the previous report 05/29/2021 there is no significant change
CTA 11/18/2024
IMPRESSION: Examination is negative for pulmonary embolism.
There is mild aneurysmal dilation of the ascending aorta, with short axis diameter 4.2 cm at the level of the right main pulmonary artery, stable compared to examination of May 28, 2021. Consider follow-up CT angiography with attention to the
ascending aorta, suggested timeframe of 2 years.
Coronary artery calcifications and/or stents are present. Please correlate with symptoms of and risk factors for coronary artery disease, with further workup as clinically appropriate.
Bronchial wall thickening, which appears greatest in both lower lobes, suggestive of bronchitis.
Physical Exam
Vital Signs/Labs
Vital Signs
Temp Pulse Resp BP Pulse Ox
98.9 F 78 20 151/91 99
11/20/24 07:53 11/20/24 07:53 11/20/24 07:53 11/20/24 07:53 11/20/24 07:53
11/19/24 11/20/24 11/21/24
06:59 06:59 06:59
Actual Weight 102.3 kg 100.4 kg
11/20/24 03:55
11/20/24 03:55
APTT 45.4 Sec (23.4-35.0) H 11/19/24 14:40
Triglycerides 463 mg/dl (10-149) H 11/19/24 08:15
LDL Cholesterol, Calc mg/dl 11/19/24 08:15
VLDL Cholesterol, Calc mg/dl (0-30) 11/19/24 08:15
HDL Cholesterol 43 mg/dl 11/19/24 08:15
LAB Results
11/18/24 11/18/24 11/18/24
16:14 21:59 22:00
Troponin I 0.057 H* 0.054 H* Cancelled
11/19/24 11/19/24 11/19/24
01:10 04:00 09:32
Troponin I 0.051 H* Cancelled 0.043 H*
Physical Exam
Constitutional: No acute distress
Cardiovascular: Rhythm & rate is regular and Pedal edema is absent
Respiratory: Respiratory effort normal and Lungs clear to auscul.
GI: Soft and Distention absent
Neuro/Psych: AO x 3
Other: Cath Site (hand normal perfusion, palpable pulse)
Data Reviewed
-
Date of Service: November 20, 2024
--- NOTE | 2024-11-20 08:30 | PTCARENOTE ---
Assumed care of pt from prev nsg shift; Pt AAOX3. Pt's VSS w/HR in the 80's & BP 148/82 this AM. Pt is SR w/1st deg AVB on telemetry monitoring. Pt w/R radial access site w/dressing C/D/I w/no signs or symptoms of bleeding or hematoma. Pt
anticipating D/C today. Pt w/call jeffery within reach & plan of care ongoing.
[2024-11-20] MEDS: IMDUR (EXTENDED RELEASE) 30 MG PO (08:38)
[2024-11-20] MEDS: LOW STRENGTH ASPIRIN 81 MG PO (08:38)
[2024-11-20] MEDS: NOVOLOG FLEXPEN-LOW RESISTANCE 2 UNITS SC (08:38)
[2024-11-20] MEDS: PLAVIX 75 MG PO (08:38)
[2024-11-20] MEDS: PROTONIX 40 MG PO (08:39)
[2024-11-20] MEDS: CRESTOR 20 MG PO (08:39)
[2024-11-20] MEDS: TOPROL XL 50 MG PO (08:39)
[2024-11-20] MEDS: NORVASC 10 MG PO (08:39)
[2024-11-20 12:24] LABS: Glucose - Point of Care 258 mg/dl (70-99)
[2024-11-20] MEDS: NOVOLOG FLEXPEN-LOW RESISTANCE 3 UNITS SC (12:44)
--- NOTE | 2024-11-20 12:53 | W.DS.TRANS ---
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
-
Discharge Instructions:
Discharge Diagnosis/Procedures Cardiac cath
Diet Low Cholesterol,Diabetic, Carb Controlled
Driving Restrictions No driving for 24 hours
Instructions:
Stand-Alone Forms: DC Instructions- Cath/EP Lab
Changes to Home Medications: Yes
Discharge Medications:
DC Medications w/original date entered in [employer]
acetaminophen-caffeine 500 mg-65 mg tablet 1 tab PO [id number] PRN mild pain 11/18/24
albuterol sulfate 90 mcg/actuation aerosol inhaler 2 puff inhalation R [id number] PRN sob 11/18/24
amlodipine 10 mg tablet (Norvasc) 10 mg PO DAILY 11/18/24
aspirin 81 mg tablet,delayed release 75 mg PO QPM 11/18/24
cetirizine 10 mg tablet (Zyrtec) 10 mg PO HS 11/18/24
clopidogrel 75 mg tablet (Plavix) 75 mg PO DAILY 11/18/24
esomeprazole magnesium 20 mg capsule,delayed release (Nexium) 20 mg PO BID 11/18/24
glimepiride 1 mg tablet 1 mg PO QPM 11/18/24
metformin 1,000 mg tablet,extended release 24hr (osmotic) 1,000 mg PO BID 11/18/24
montelukast 10 mg tablet (Singulair) 10 mg PO DAILYPRN PRN allergies 11/18/24
paroxetine HCl 20 mg tablet (Paxil) 20 mg PO HS 11/18/24
ezetimibe 10 mg tablet 10 mg PO HS #30 tabs 11/20/24
isosorbide mononitrate 30 mg tablet,extended release 24 hr 30 mg PO DAILY #30 tabs 11/20/24
metoprolol succinate 50 mg tablet,extended release 24 hr 50 mg PO BID #60 tabs 11/20/24
rosuvastatin 20 mg tablet 20 mg PO DAILY #30 tabs 11/20/24
Home Medication Changes
Metoprolol increased
Crestor increased
Imdur initiated
Zetia initiated
Pending Results: No
--- NOTE | 2024-11-20 14:45 | PTCARENOTE ---
Pt's IV line D/C'd & telemetry pack removed. Discussed D/C instructions w/pt & pt's nephew. Pt escorted out by this RN via WC w/nephew providing transportation home. Pt left w/personal belongings including cell phone & printing roller handler.
--- NOTE | 2024-11-20 15:35 | PN.CDI ---
CDI
- -
CDI:
Physician Documentation Request
Admit Date: 11/18/24 18:33
Dear Doctor Juanito,
Please review the following and provide your response in the progress notes.
Clinical Indicators:
Laboratory Tests
11/18/24 11/18/24 11/19/24
16:14 21:59 01:10
Troponin I 0.057 H* 0.054 H* 0.051 H*
11/19/24
09:32
Troponin I 0.043 H*
Based on the above and your clinical assessment, please clarify in the progress notes, the appropriate diagnosis, if significant, that supports the above abnormalities and additional evaluation, monitoring and/or treatment rendered:
Non-ischemic myocardial injury
Abnormal lab value, clinically insignificant
Other(please specify)
Use of terms such as suspected, likely, concern for, or probable (associated with a specific diagnosis that is being evaluated, monitored, or treated as if it exists) are acceptable and can be coded in the inpatient setting, when documented at the
time of discharge.
Thank you,
Dixie Rosas RN BSN CCDS
CDI Specialist
Please contact via tiger text
Please use your independent medical judgment in providing your response.
[2024-11-22 00:40] LABS: Lipoprotein a (Lp a) 8 mg/dL (<=29)
== END 2024-11-20 14:35 | disposition home or self-care (01) | DRG 287 ==
LOC: IVU 18:33
PROVIDERS: Nurse Practitioner Adult Health; Registered Nurse; Urology; ADMITTING PHYSICIAN Hospitalist; ATTENDING PHYSICIAN Internal Medicine; CONSULT PHYSICIAN Internal Medicine Cardiovascular Disease; EMERGENCY PHYSICIAN Emergency Medicine; FAMILY PHYSICIAN Internal Medicine Cardiovascular Disease
PROC: B2111ZZ Fluoroscopy of Multiple Coronary Arteries using Low Osmolar Contrast (ICD-10-PCS; 2024-11-19)
PROC: 4A023N7 Measurement of Cardiac Sampling and Pressure, Left Heart, Percutaneous Approach (ICD-10-PCS; 2024-11-19)
PROC: B2151ZZ Fluoroscopy of Left Heart using Low Osmolar Contrast (ICD-10-PCS; 2024-11-19)
DX: I25.10 Atherosclerotic heart disease of native coronary artery without angina pectoris (principal); D64.9 Anemia, unspecified; I10 Essential (primary) hypertension; E11.65 Type 2 diabetes mellitus with hyperglycemia; E66.9 Obesity, unspecified; E78.00 Pure hypercholesterolemia, unspecified; Z87.891 Personal history of nicotine dependence; Z95.5 Presence of coronary angioplasty implant and graft; Z68.35 Body mass index [BMI] 35.0-35.9, adult; Z79.02 Long term (current) use of antithrombotics/antiplatelets
CPT/HCPCS: 71275; 80048; 80053; 80061; 82962; 83036; 83690; 83695; 83721; 84484; 85025; 85027; 85347; 85730; 93005; 93306; 93458; 93799; 96374; 96375; 96376; 99152; 99153; 99291; C1769; C1887; C1894; Q9950; Q9967